=== PATIENT | female | born 2000 | race Caucasian/White ===

== ENCOUNTER 2024-02-12 06:31 | Emergency (ER) | payer OTHER ==
[2024-02-12 06:45] VITALS: BP 121/79; PULSE 62; RESP 18; TEMP 97.8; BMI 22.3
== END 2024-02-12 09:30 | disposition home or self-care (01) ==
LOC: JER 06:31
DX: R21 Rash and other nonspecific skin eruption (principal); L23.7 Allergic contact dermatitis due to plants, except food
CPT/HCPCS: 99283-25